=== PATIENT | female | born 1970 | race African-American/Black ===

== ENCOUNTER 2017-08-20 00:31 | Emergency (ER) | payer OTHER ==
[~2017-08-20] VITALS: Ht 167.6 cm; Wt 90.7 kg
[2017-08-20] MEDS ORDERED: HYDROCHLOROTH12.5 M2 ORAL (00:39)
[2017-08-20] MEDS ORDERED: Haloperidol 5mg/ml Inj IM ONE (00:45)
[2017-08-20 01:27] VITALS: BP 146/96
[2017-08-20 01:28] LABS: APPEARANCE,URINE CLOUDY; BASOPHILS % (AUTO) 0.7 % (0.0-2.0); KETONES,URINE 1+ (NEGATIVE); LEUKOCYTE ESTERASE ,URINE NEGATIVE (NEGATIVE); LYMPHOCYTES % (AUTO) 13.4 % (20.0-45.0); MEAN CORPUSCULAR HEMOGLOBIN 31.4 PG (27.0-31.0); MEAN CORPUSCULAR HGB CONC 32.3 G/DL (32.0-36.0); MEAN CORPUSCULAR VOLUME 97 FL (80-99); MEAN PLATELET VOLUME 7.4 FL (6.5-10.1); MONOCYTES % (AUTO) 4.5 % (1.0-10.0); NEUTROPHILS % (AUTO) 81.3 % (45.0-75.0); NITRITE,URINE NEGATIVE (NEGATIVE); PH,URINE 5 (4.5-8.0); PLATELET COUNT 360 K/UL (150-450); PROTEIN,URINE 3+ (NEGATIVE); RED BLOOD COUNT 4.52 M/UL (4.20-5.40); RED CELL DISTRIBUTION WIDTH 13.2 % (11.6-14.8); UROBILINOGEN,URINE 1 MG/DL (0.0-1.0); WHITE BLOOD COUNT 12.1 K/UL (4.8-10.8)
[2017-08-20] MEDS ORDERED: Dicyclomine HCl 10mg/5ml oral soln ORAL ONE (01:45)
[2017-08-20 01:56] LABS: AMORPHOUS SEDIMENT,UR MANY /LPF; BACTERIA,URINE FEW /HPF; RBC,URINE 0-2 /HPF (0 - 2); SQUAMOUS EPITHELIAL CELL,UR FEW /LPF (NONE/OCC); WBC,URINE 0-2 /HPF (0 - 2)
[2017-08-20 02:08] LABS: PROTHROMBIN TIME 10.1 SEC (9.30-11.50)
[2017-08-20 02:14] LABS: ANION GAP 13 mmol/L (5-15); CALCIUM 9.4 MG/DL (8.5-10.1); CARBON DIOXIDE 24 MMOL/L (21-32); CHLORIDE 105 MMOL/L (98-107); CREATININE 0.8 MG/DL (0.55-1.30); GLOMERULAR FILTRATION RATE > 60 mL/min (>60); POTASSIUM 3.5 MMOL/L (3.5-5.1); SODIUM 142 MMOL/L (136-145)
[2017-08-20 02:20] LABS: ALANINE AMINOTRANSFERASE 34 U/L (12-78); ALBUMIN/GLOBULIN RATIO 0.9 (1.0-2.7); ASPARTATE AMINO TRANSFERASE 26 U/L (15-37); LIPASE 91 U/L (73-393); TOTAL PROTEIN 9.5 G/DL (6.4-8.2)
[2017-08-20] MEDS ORDERED: PRILOSEC10 M1 ORAL (03:05)
[2017-08-20] MEDS ORDERED: ZOFRAN4 MG ORAL (03:05)
[2017-08-20 03:45] VITALS: BP_SYST 146; BP_SYST 151; BP_DIAS 93; BP_DIAS 96
--- NOTE | 2017-08-20 07:04 | Emergency Room Report ---
History of Present Illness General Chief Complaint: Abdominal Pain Source: Patient Present Illness HPI Patient's 47-year-old female who presented via ambulance for increased abdominal pain. Patient onset of symptoms approximately 20 minutes prior to arrival. Patient reports having multiple similar episodes. She reports having prior history of hernia surgery. She states that she had been having episodes of nausea that required her recently to be hospitalized at [facility]. The patient had been noticed be a regular marijuana smoker. She denies any fever. She reported having some nonbilious vomiting. Allergies: Coded Allergies: No Known Allergies (Unverified , 08/20/17) Patient History Past Medical History: see triage record Last Menstrual Period: Jul Reviewed Nursing Documentation: PMH: Agreed, PSxH: Agreed Nursing Documentation-PMH Hx Hypertension: Yes Hx Gastrointestinal Problems: Yes - HERNIORRAPHY IN 1997 Review of Systems All Other Systems: negative except mentioned in HPI Physical Exam Vital Signs Date Time Temp Pulse Resp B/P (MAP) Pulse Ox O2 Delivery O2 Flow Rate FiO2 08/20/17 00:33 97.3 101 18 178/123 98 Room Air Sp02 EP Interpretation: reviewed, normal General Appearance: normal inspection, well appearing, no apparent distress, alert, GCS 15 Head: atraumatic ENT: normal ENT inspection, hearing grossly normal, normal voice Neck: normal inspection, full range of motion, supple, no bony tend Respiratory: normal inspection, lungs clear, normal breath sounds, no respiratory distress, no retraction, no wheezing Cardiovascular #1: regular rate, rhythm, no edema Gastrointestinal: normal inspection, normal bowel sounds, non tender, soft, no guarding, no hernia Genitourinary: no CVA tenderness Musculoskeletal: normal inspection, back normal, normal range of motion Neurologic: normal inspection, alert, oriented x3, responsive, 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 Differential diagnoses included ischemic bowel, appendicitis, perforated viscus, abdominal aortic aneurysm, inferior myocardial infarction, viral gastroenteritis Because of complexity of patient's case laboratory testing and imaging studies were ordered. I laboratory testing was notable for minimal yellow white blood count is likely due to stress emargination. Patient was also noted be drug screen positive for marijuana and cocaine. EKG interpreted by me normal sinus rhythm without acute ST or T wave changes. The patient was given IM Haldol for nausea. The patient was also given IV acid blockers as well as Bentyl for pain. The patient given prescription for antiemetics. She is advised to stop using drugs.The patient is advised to follow up with primary care doctor in 1-2 days. Patient is advised to return if any worsening condition or if any changes in status that are concerning. Labs Test 08/20/17 01:15 White Blood Count 12.1 K/UL (4.8-10.8) Red Blood Count 4.52 M/UL (4.20-5.40) Hemoglobin 14.2 G/DL (12.0-16.0) Hematocrit 43.9 % (37.0-47.0) Mean Corpuscular Volume 97 FL (80-99) Mean Corpuscular Hemoglobin 31.4 PG (27.0-31.0) Mean Corpuscular Hemoglobin Concent 32.3 G/DL (32.0-36.0) Red Cell Distribution Width 13.2 % (11.6-14.8) Platelet Count 360 K/UL (150-450) Mean Platelet Volume 7.4 FL (6.5-10.1) Neutrophils (%) (Auto) 81.3 % (45.0-75.0) Lymphocytes (%) (Auto) 13.4 % (20.0-45.0) Monocytes (%) (Auto) 4.5 % (1.0-10.0) Eosinophils (%) (Auto) 0.0 % (0.0-3.0) Basophils (%) (Auto) 0.7 % (0.0-2.0) Prothrombin Time 10.1 SEC (9.30-11.50) Prothromb Time International Ratio 1.0 (0.9-1.1) Activated Partial Thromboplast Time 27 SEC (23-33) Urine Color Yellow Urine Appearance Cloudy Urine pH 5 (4.5-8.0) Urine Specific [place] 1.025 (1.005-1.035) Urine Protein 3+ (NEGATIVE) Urine Glucose (UA) Negative (NEGATIVE) Urine Ketones 1+ (NEGATIVE) Urine Occult Blood 5+ (NEGATIVE) Urine Nitrite Negative (NEGATIVE) Urine Bilirubin Negative (NEGATIVE) Urine Urobilinogen 1 MG/DL (0.0-1.0) Urine Leukocyte Esterase Negative (NEGATIVE) Urine RBC 0-2 /HPF (0 - 2) Urine WBC 0-2 /HPF (0 - 2) Urine Squamous Epithelial Cells Few /LPF (NONE/OCC) Urine Amorphous Sediment Many /LPF (NONE) Urine Bacteria Few /HPF (NONE) Urine HCG, Qualitative Negative Sodium Level 142 MMOL/L (136-145) Potassium Level 3.5 MMOL/L (3.5-5.1) Chloride Level 105 MMOL/L (98-107) Carbon Dioxide Level 24 MMOL/L (21-32) Anion Gap 13 mmol/L (5-15) Blood Urea Nitrogen 11 mg/dL (7-18) Creatinine 0.8 MG/DL (0.55-1.30) Estimat Glomerular Filtration Rate > 60 mL/min (>60) Glucose Level 107 MG/DL (74-106) Calcium Level 9.4 MG/DL (8.5-10.1) Total Bilirubin 0.6 MG/DL (0.2-1.0) Aspartate Amino Transf (AST/SGOT) 26 U/L (15-37) Alanine Aminotransferase (ALT/SGPT) 34 U/L (12-78) Alkaline Phosphatase 56 U/L (46-116) Troponin I 0.005 ng/mL (0.000-0.056) Total Protein 9.5 G/DL (6.4-8.2) Albumin 4.6 G/DL (3.4-5.0) Globulin 4.9 g/dL Albumin/Globulin Ratio 0.9 (1.0-2.7) Lipase 91 U/L (73-393) Urine Opiates Screen Negative (NEGATIVE) Urine Barbiturates Screen Negative (NEGATIVE) Phencyclidine (PCP) Screen Negative (NEGATIVE) Urine Amphetamines Screen Negative (NEGATIVE) Urine Benzodiazepines Screen Negative (NEGATIVE) Urine Cocaine Screen Positive (NEGATIVE) Urine Marijuana (THC) Screen Positive (NEGATIVE) Last Vital Signs Date Time Temp Pulse Resp B/P (MAP) Pulse Ox O2 Delivery O2 Flow Rate FiO2 08/20/17 03:45 97.3 101 17 146/96 98 Room Air Status: improved Disposition: HOME, SELF-CARE Condition: Stable Scripts Omeprazole Magnesium (PRILOSEC) 10 Mg Suspdr.pkt 10 MG ORAL DAILY, #30 PACKET Prov: Maurizio Mena 08/20/17 Ondansetron (Zofran) 4 Mg Tablet 4 MG ORAL Q6H Y for Nausea & Vomiting, #30 TAB 0 Refills Prov: Maurizio Mena 08/20/17 Patient Instructions: Abdominal Pain, Adult Maurizio Mena Aug 20, 2017 07:04
== END 2017-08-20 03:45 | disposition home or self-care (01) ==
LOC: EDBD 00:31 → EMR 00:44
DX: R10.9 Unspecified abdominal pain (principal); I10 Essential (primary) hypertension
CPT/HCPCS: 36415; 80053; 80307; 81003; 81025; 83690; 84484; 85025; 85610; 85730; 96361; 96372; 96374; 96375; 99284; J1630; J2405; S0028